=== PATIENT | female | born 1935 | race Caucasian/White ===

== ENCOUNTER 2018-08-24 22:42 | Emergency (ER) | payer MEDICARE, BC ==
--- NOTE | 2018-08-24 23:07 | Emergency Department Record ---
History of Present Illness - General Chief Complaint: Fall Injury Stated Complaint: FALL INJURY Time Seen by Provider: 08/24/18 23:02 Source: Patient Mode of Arrival: Ambulatory Limitations: No limitations - History of Present Illness Initial Comments: 81 yo female presents to ED for evaluation following a trip and fall at home this evening resulting in injury to the nose. Patient denies LOC, denies neck pain symptoms, denies numbness, tingling, or weakness. Patient denies change in vision, and denies the use of anticoagulation medications. Patient denies other injury on examination. MD Complaint: Fall Onset/Timin -: Minutes(s) Fall From: Standing, Other When Fall Occurred: Just prior to arrival Fall Witnessed: No Place Fall Occurred: Home Loss of Consciousness: None Prolonged Down Time?: No Symptoms Prior to Fall: None Location: Face Severity: Moderate Severity scale (1-10): 9 Quality: Aching Context: Tripped/slipped, Other Associated Symptoms: Denies - Jeaneth Coma Scale Eye Response: (4) Open spontaneously Motor Response: (6) Obeys commands Verbal Response: (5) Oriented [place] Total: 15 - Related Data Home Medications Medication Instructions Recorded Confirmed Last Taken Amitriptyline HCl mg PO QHS 08/24/18 Unknown Amlodipine Besylate [Norvasc] mg PO DAILY 08/24/18 Unknown Aspirin [Aspirin EC] 81 mg PO DAILY 08/24/18 08/24/18 Unknown Levothyroxine Sodium [Synthroid] mcg PO DAILY 08/24/18 Unknown Loperamide HCl [Immodium] 2 mg PO BID 08/24/18 08/24/18 Unknown No Home Med [NO HOME MEDS] 08/24/18 08/24/18 Unknown Travel Screening - Travel/Exposure Within Last 30 Days Have you traveled within the last 30 days?: No - Travel Symptoms Symptom Screening: None Review of Systems Constitutional: Denies: Chills, Fever, Malaise, Night sweats Eyes: Denies: Eye discharge, Eye pain ENT: Reports: Other (STS nose). Denies: Congestion, Ear pain, Epistaxis Respiratory: Denies: Cough, Dyspnea Cardiovascular: Denies: Chest pain, Dyspnea on exertion, Other Endocrine: Denies: Fatigue Gastrointestinal: Denies: Abdominal pain, Nausea, Vomiting Genitourinary: Denies: Incontinence, Retention Musculoskeletal: Denies: Arthralgia, Back pain, Gout, Joint swelling Skin: Denies: Bruising, Change in color Neurological: Denies: Abnormal gait, Confusion, Headache, Seizure Psychiatric: Denies: Anxiety Hematological/Lymphatic: Denies: Anemia, Blood Clots Past Medical History - SOCIAL HISTORY Smoking Status: Never smoker Alcohol Use: None Drug Use: None - RESPIRATORY Hx Respiratory Disorders: No - CARDIOVASCULAR Hx Cardio Disorders: Yes Hx Abnormal EKG: Yes (LBBB) - NEURO Hx Neuro Disorders: Yes Hx CVA: Yes (X2) - GI Hx GI Disorders: Yes Hx Abdominal Pain: Yes Comment:: STENT PLACED IN BILIARY DUCT - Hx Genitourinary Disorders: No - ENDOCRINE Hx Endocrine Disorders: Yes Hx Thyroid Disease: Yes - MUSCULOSKELETAL Hx Musculoskeletal Disorders: No - PSYCH Hx Psych Problems: No - HEMATOLOGY/ONCOLOGY Hx Hematology/Oncology Disorders: Yes Hx Cancer: Yes Hx Chemotherapy: No Hx Radiation Therapy: No Family Medical History Any Significant Family History?: Yes Hx Cancer: Mother, Brother/Sister Hx Heart Disease: Brother/Sister Physical Exam - General General Appearance: Alert, Oriented x3, Cooperative, Mild distress Limitations: No limitations - Head Head exam detail: General tenderness. negative: Abrasion, Contusion, Lopez's sign, Hematoma, Laceration - Eye Eye exam: Normal appearance. negative: Conjunctival injection, Periorbital swelling, Periorbital tenderness, Scleral icterus - ENT Ear exam: negative: Auricular hematoma, Auricular trauma Nasal Exam: Other (STS to the nose without deformity present, no septal hematoma present, no epistaxis present.). negative: Active bleeding, Discharge , Dried blood, Foreign body Mouth exam: negative: Drooling, Laceration, Muffled voice, Tongue elevation - Neck Neck exam: Normal inspection. negative: Meningismus, Tenderness - Respiratory Respiratory exam: Normal lung sounds bilaterally. negative: Rales, Respiratory distress, Rhonchi, Stridor - Cardiovascular Cardiovascular Exam: Regular rate, Normal rhythm, Normal heart sounds - GI/Abdominal GI/Abdominal exam: Soft. negative: Rebound, Rigid, Tenderness - Rectal Rectal exam: Deferred - exam: Deferred - Extremities Extremities exam: Normal inspection. negative: Calf tenderness, Pedal edema, Tenderness - Back Back exam: Denies: CVA tenderness (R), CVA tenderness (L) - Neurological Neurological exam: Alert, Normal gait, Oriented X3 - Psychiatric Psychiatric exam: Normal affect, Normal mood - Skin Skin exam: Normal color. negative: Abrasion Type of lesion: negative: abrasion Course Vital Signs 08/24/18 22:43 Temperature 98 F Pulse Rate 94 H Respiratory 24 Rate Blood Pressure 177/97 Pulse Ox 96 - Reevaluation(s) Reevaluation #1: 08/24/18 23:59 CT Head: Multiple infarcts various distribution involving both hemispheres/cerebellar hemispheres No acute intra-cranial hemorrhage. No intra-cranial mass or obstructive hydrocephalus. CT Maxillo-facial bones: Slight deformity of the nasal arch Slight deviation of the perpendicular plate to the right of midline. No other fractures identified. Patient was updated on all results, appears stable for discharge at this time. Disposition Disposition: Discharge Clinical Impression: Nasal bone fracture Qualifiers: Encounter type: initial encounter Fracture type: closed Qualified Code(s): S02.2XXA - Fracture of nasal bones, initial encounter for closed fracture Fall Qualifiers: Encounter type: initial encounter Qualified Code(s): W19.XXXA - Unspecified fall, initial encounter Disposition: Home, Self-Care Condition: (2) Stable Instructions: Nasal Fracture (ED) Additional Instructions: Return to ED if your symptoms worsen or if you have any concerns. Ice as directed. Follow-up with your family doctor in 3-5 days as directed. Forms: Patient Portal Access Time of Disposition: 00:03 Quality - Quality Measures Quality Measures: N/A, Blunt Head Trauma (>2yr) - [place] Coma Scale [place] Coma Scale: Jeaneth Coma Scale Eye Response: (4) Open spontaneously Motor Response: (6) Obeys commands Verbal Response: (5) Oriented [place] Total: 15 - Blunt Head Trauma - Adult Quality Measure: Measure #415: Utilization of CT for Minor Blunt Head Trauma ICD10 Codes Entered: Yes Was CT ordered: Yes Does Patient Have Any of the Following: No Exclusions Patient Presented Within 24 Hours of Injury: Yes Jeaneth Score: [address] for Minor Blunt Head Trauma: < CT Done, Appropriate Indication > [G9529] Additional Inclusion Criteria: Within 24hrs (AND) GCS of 15 (AND) CT ordered. [ G9530] Indications For CT: Age 65 Years and Older - Blood Pressure Screening Does Patient Have Any of the Following: Active Dx of HTN Blood Pressure Classification: Hypertensive Reading Systolic Measurement: 177 Diastolic Measurement: 97 Screening for High Blood Pressure: Patient Exclusion, Hx of HTN [G9744]
--- NOTE | 2018-08-27 22:18 | CT SCAN REPORT ---
EXAM: CT SCAN HEAD WO CONTRAST HISTORY: PATIENT FELL WITH NOSE PAIN AND SWELLING. TECHNIQUE: Axial CT scan of the head performed without IV contrast. Preliminary report provided by [facility]. COMPARISON: No prior head CT. ENCOUNTER: Initial. FINDINGS: No definite acute intracranial hemorrhage identified. No focal mass effect or midline shift apparent. Moderate generalized atrophy with chronic- appearing deep white matter changes, nonspecific but likely representing some chronic small vessel deep white matter ischemic disease. There are also asymmetric areas of low attenuation bilaterally within the brain, likely representing multiple old areas of infarction including the cerebellum bilaterally right greater than left, relatively large area in the right posterior parietal region, and moderately large areas in the left frontal region and in the left parietal region far posteriorly. No definite acute infarct or intracranial mass lesion seen. No depressed calvarial fracture evident. IMPRESSION: 1. NO DEFINITE ACUTE INTRACRANIAL HEMORRHAGE OR FOCAL MASS EFFECT EVIDENT. 2. GENERALIZED ATROPHY WITH CHRONIC-APPEARING DEEP WHITE MATTER CHANGES AND MULTIPLE OLD AREAS OF INFARCTION IN THE CEREBELLUM BILATERALLY WELL IN THE BIPARIETAL REGION AND IN THE LEFT FRONTAL REGION. JOB NUMBER: [id number] [facility]
--- NOTE | 2018-08-27 22:26 | CT SCAN REPORT ---
EXAM: CT SCAN MAXILLOFACIAL WO CONTRAST HISTORY: PATIENT FELL WITH NOSE PAIN, SWELLING, AND BLEEDING. TECHNIQUE: Axial CT scan of the maxillofacial bones performed without IV contrast. Preliminary report provided by [facility]. COMPARISON: None. FINDINGS: There is mild membrane thickening in the right ethmoid sinus anteriorly and the left ethmoid sinus posteriorly. Small cyst or polyp posteriorly in the left maxillary sinus. Elsewhere, the paranasal sinuses all appear essentially clear with no air fluid levels evident. No abnormal air collection seen within either orbit. There has probably been bilateral cataract surgery. Artifact on some of the images related to the patient's metallic dental work. Mild deformity of the nasal bone is seen with mild deviation of the nasal septum to the right. There is no prominent overlying soft tissue swelling and these may be chronic findings. Elsewhere, no appearance to suggest a fracture of the facial bones identified. 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 Facet joint arthropathy in the upper cervical spine as well. IMPRESSION: 1. SOME MINOR DEFORMITY INVOLVING THE NASAL BONES, DESCRIBED ABOVE. 2. ELSEWHERE, NO APPEARANCE TO SUGGEST A FACIAL BONE FRACTURE IDENTIFIED. 3. 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 4. SMALL CYST OR POLYP LEFT MAXILLARY SINUS AND SOME MILD MEMBRANE THICKENING IN THE ETHMOIDS. J[facility]BER: [id number] [facility]
== END 2018-08-25 00:16 | disposition home or self-care (01) ==
LOC: ER 22:42
DX: S02.2XXA Fracture of nasal bones, initial encounter for closed fracture (principal); W01.10XA Fall on same level from slipping, tripping and stumbling with subsequent striking against unspecified object, initial encounter; I10 Essential (primary) hypertension; Y92.009 Unspecified place in unspecified non-institutional (private) residence as the place of occurrence of the external cause; Z86.73 Personal history of transient ischemic attack (TIA), and cerebral infarction without residual deficits
CPT/HCPCS: 70450; 70486; 99283; 99284